=== PATIENT | male | born 1970 | race African-American/Black ===

== ENCOUNTER 2018-08-02 21:14 | Emergency (ER) | payer MEDICAID ==
[~2018-08-02] VITALS: Ht 152.4 cm; Wt 108.9 kg
[2018-08-02 21:16] VITALS: Ht 152.4 cm; Wt 108.9 kg
[2018-08-02 21:32] VITALS: BP 78/61
[2018-08-02 22:35] VITALS: BP 41/15
[2018-08-02 22:47] LABS: PLATELET COUNT 276 x10^3mcL (130-400)
[2018-08-02 22:53] LABS: CALCIUM 8.3 mg/dL (8.5-10.1); CARBON DIOXIDE 24.5 mmol/L (21-32); CREATININE SERUM 1.9 mg/dL (0.7-1.3); POTASSIUM SERUM 4.3 mmol/L (3.5-5.1)
[2018-08-02 23:03] LABS: RED CELL DISTRIBUTION WIDTH 18.1 % (11.5-14.5)
[2018-08-02 23:19] LABS: BILIRUBIN TOTAL 0.8 mg/dL (0.20-1.00)
[2018-08-02 23:27] LABS: ALBUMIN 2.8 g/dL (3.4-5.0); TOTAL PROTEIN, SERUM 5.8 g/dL (6.4-8.2)
[2018-08-02 23:32] LABS: BAND NEUTROPHIL 13 % (0-10); METAMYELOCTE 8 % (0-2); MONOCYTE 1 % (0-7); MYELOCYTE 7 % (0-2); PROMYELOCYTE 1 % (0-0); SEGMENTED NEUTROPHILS 49 % (37-75); rbc morphology (normal/abnorm) ABNORMAL (NORMAL)
[2018-08-02 23:33] LABS: PLATELET MORPHOLOGY FEW LARGE PLATELET
[2018-08-02 23:47] LABS: CK-MB 4.9 ng/mL (0-3.6)
== END 2018-08-03 04:15 | disposition expired ==
LOC: ED 21:14
PROVIDERS: Emergency Medicine
DX: I46.9 Cardiac arrest, cause unspecified (principal); J44.9 Chronic obstructive pulmonary disease, unspecified; I50.9 Heart failure, unspecified
CPT/HCPCS: 31500; 36600; 83880; J3490; Q0092